=== PATIENT | female | born 1990 | race African-American/Black ===

== ENCOUNTER 2018-01-25 23:06 | Emergency (ER) | payer OTHER ==
[~2018-01-25] VITALS: Ht 162.6 cm; Wt 81.2 kg
--- NOTE | 2018-01-26 00:13 | NUR ---
Patient discharged to home in stable conditon. Written and verbal after care instructions given with rx. Patient verbalizes understanding of instructions.
== END 2018-01-26 00:14 | disposition home or self-care (01) ==
LOC: ER 23:06
DX: L03.811 Cellulitis of head [any part, except face] (principal)
CPT/HCPCS: A4663

== ENCOUNTER 2018-01-28 10:57 | Emergency (ER) | payer OTHER ==
[~2018-01-28] VITALS: Ht 162.6 cm; Wt 81.2 kg
--- NOTE | 2018-01-28 11:15 | NUR ---
Patient discharged to home in stable conditon. Written and verbal after care instructions given. Patient verbalizes understanding of instructions.
== END 2018-01-28 11:15 | disposition home or self-care (01) ==
LOC: ER 10:57
DX: L03.811 Cellulitis of head [any part, except face] (principal); L72.3 Sebaceous cyst
CPT/HCPCS: A4663